=== PATIENT | male | born 1960 | race Caucasian/White ===

== ENCOUNTER → 2016-03-21 | Outpatient (CLI) | payer BC ==
[2016-03-21 07:40] LABS: Blood Urea Nitrogen 15 mg/dL (9-20); Non-African American GFR(MDRD) >60 (>60 ml/min/1.73 sqM)
--- NOTE | 2016-03-21 09:27 | CT ---
EXAMINATION TYPE: CT abdomen wo/w con DATE OF EXAM: 03/21/2016 8:23 AM COMPARISON: CT 01/23/2014, ultrasound 02/04/2015 INDICATION: recheck renal cyst DLP: 616.1 mGycm, Automated exposure control for dose reduction was used. CONTRAST: 100 mL of Omnipaque 300. Study performed with Oral Contrast TECHNIQUE: Axial images were obtained from above the diaphragm to the pubic rami in the axial plane a t 5 mm thick sections. Reconstructed images are reviewed on the computer in the coronal plane. FINDINGS: Limited CT sections are obtained the lung bases. The lung bases are clear. CT ABDOMEN: Liver: Normal Spleen: Normal Pancreas: Normal Adrenal glands: The adrenal glands are normal. Gallbladder: Normal Kidneys: No masses are evident. There is a small left hydronephrosis. Some inflammatory change may be adjacent to the left renal pelvis. There is a nonobstructing 0.7 cm renal stone within the renal pel vis. Hydronephrosis appears to extend beyond this region. The calyces are not dilated. This may be pa rtially an extrarenal pelvis. No cysts are present. The extrarenal pelvis dilatation may extend towar ds the inferior pole which could account for the apparent cyst on prior studies. Delayed images were obtained through the kidneys, which remain unremarkable. Aorta: Normal Inferior vena cava: Normal. CT PELVIS: Upper portion only Loops of bowel within the abdomen and upper pelvis are normal. IMPRESSIONS: 1. Left extrarenal pelvis with inflammatory changes adjacent. A 0.7 cm nonobstructing renal stone is present within the renal pelvis. The inflammatory changes adjacent to the renal pelvis suggest infec tion or neoplasm. Consider additional evaluation with ultrasound.
== END | disposition home or self-care (01) ==
LOC: RADCTMAIN 06:53
PROVIDERS: ATTEND Urology
DX: N20.0 Calculus of kidney (principal); N28.1 Cyst of kidney, acquired
CPT/HCPCS: 82565; 84520; 74170; 36415; Q9967

== ENCOUNTER → 2016-03-23 | Outpatient (CLI) | payer BC ==
--- NOTE | 2016-03-23 14:21 | XR ---
Abdomen HISTORY: Kidney stones Correlation to CT abdomen 21 March 2016. Frontal view of the abdomen submitted on 2 images. Patient's left-sided renal pelvic calculus is noted and measures approximately 11 mm on plain film. L ned bases are clear. No pneumoperitoneum or bowel obstruction. Degenerative disc changes in the visua lized spine. Probable phleboliths present within the pelvis. IMPRESSION: Left renal pelvic calculus.
== END | disposition home or self-care (01) ==
LOC: RADXRMAIN 11:46
PROVIDERS: ATTEND Urology
DX: N20.0 Calculus of kidney (principal)
CPT/HCPCS: 74000

== ENCOUNTER 2016-07-19 18:20 | Emergency (ER) | payer BC ==
[2016-07-19 18:26] VITALS: TEMP 98.4
[2016-07-19] MEDS ORDERED: HYDROmorphone 1 MG/ML 1 ML SYRINGE IVP STA (18:44)
[2016-07-19] MEDS ORDERED: SODIUM CHLORIDE 0.9% 1,000 ML IV STA (18:44)
[2016-07-19] MEDS ORDERED: ONDANSETRON 4 MG/2 ML VIAL IVP STA (18:44)
[2016-07-19] MEDS ORDERED: RX INFO: IV CONTRAST WAS GIVEN 1 EACH MISC MISCELLANE PRN (18:45)
--- NOTE | 2016-07-19 18:47 | ED ---
Abdominal Pain HPI - General Chief Complaint: Abdominal Pain Stated Complaint: abdominal pain sent by [employer] Time Seen by Provider: 07/19/16 18:39 Source: patient, RN notes reviewed Mode of arrival: ambulatory Limitations: no limitations - History of Present Illness Initial Comments: 56-year-old male presents to the emergency department with a chief complaint of left lower quadrant abdominal pain. Patient states that initially about 6 weeks ago he had this left lower quadrant abdominal pain that lasted for a few days been completely resolved. Patient states that about a week ago it returned. Patient states sometimes it so intense and makes him vomit. Patient states he feels that maybe there is a blockage or something that he has had normal bowel movements. Patient states that sometimes it so bad that he bends over and feels like vomiting. Patient does admit to a history of diverticulitis in the past. Patient states he was concerned due to the continued pain and discomfort so he thought that he should be evaluated.Patient denies any recent fever, chills, shortness of breath, chest pain, back pain, numbness or tingling, dysuria or hematuria, constipation or diarrhea, headaches or visual changes, or any other current symptoms. - Related Data Previous Rx's Medication Instructions Recorded Hydrocodone/Acetaminophen [[place] 1 each PO Q6HR PRN #20 tab 07/19/16 5-325] Ketorolac [Toradol] 10 mg PO Q6HR #20 tab 07/19/16 Ondansetron Odt [Zofran ODT] 4 mg PO Q8HR PRN #20 tab 07/19/16 Tamsulosin [Flomax] 0.4 mg PO DAILY #5 cap 07/19/16 Allergies Allergy/AdvReac Type Severity Reaction Status Date / Time No Known Allergies Allergy Verified 07/19/16 19:07 Review of Systems ROS Statement: Those systems with pertinent positive or pertinent negative responses have been documented in the HPI. ROS Other: All systems not noted in ROS Statement are negative. 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 Eye: Pupils are equal, round. Ears, nose, mouth and throat: There are moist mucous membranes. Neck: The neck is supple, there is no tenderness. Cardiovascular: There is a regular rate and rhythm. No murmur, rub or gallop is appreciated. Respiratory: Lungs are clear to auscultation, respirations are non-labored, breath sounds are equal. No wheezes, stridor, rales, or rhonchi. Gastrointestinal: Soft, non-distended, non-tender abdomen without masses or organomegaly noted. There is no rebound or guarding present. No CVA tenderness. Bowel sounds are unremarkable. Back: There is no tenderness to palpation in the midline. There is no obvious deformity. No rashes noted. Musculoskeletal: Normal ROM, no tenderness, There is no pedal edema. There is no calf tenderness or swelling. Sensation intact. Pulses equal bilaterally 2+. Neurological: CN II-XII intact, There are no obvious motor or sensory deficits. Coordination appears grossly intact. Speech is normal. Skin: Skin is warm and dry and no rashes or lesions are noted. Psychiatric: Cooperative, appropriate mood & affect, normal judgment. Limitations: no limitations Course Vital Signs 07/19/16 07/19/16 18:22 19:49 Temperature 98.4 F Pulse Rate 75 74 Respiratory 20 16 Rate Blood Pressure 134/84 134/82 O2 Sat by Pulse 97 98 Oximetry Medical Decision Making - Medical Decision Making 56-year-old male presents emergency Department chief complaint of abdominal pain that has been on and off for the last 6 weeks. This time patient was IMAGING has been reviewed. Patient's sounds more like a kidney stone type pain and he does have a 10 mm stone. This time we discussed this also blood in urine. We discussed that could be possible other etiologies for these pain. We discussed what to return for. We discussed follow-up with urology note patient's questions. He stated he understood the plan. He will be discharged. - Lab Data Result diagrams: 07/19/16 19:00 07/19/16 19:00 Lab Results 07/19/16 07/19/16 07/19/16 Range/Units 19:00 19:00 19:00 WBC 7.9 (3.8-10.6) k/uL RBC 5.19 (4.30-5.90) m/uL Hgb 16.3 (13.0-17.5) gm/dL Hct 44.6 (39.0-53.0) % MCV 85.9 (80.0-100.0) fL MCH 31.3 (25.0-35.0) pg MCHC 36.5 (31.0-37.0) g/dL RDW 12.6 (11.5-15.5) % Plt Count 210 (150-450) k/uL Neutrophils % 73 % Lymphocytes % 18 % Monocytes % 7 % Eosinophils % 0 % Basophils % 1 % Neutrophils # 5.7 (1.3-7.7) k/uL Lymphocytes # 1.5 (1.0-4.8) k/uL Monocytes # 0.5 (0-1.0) k/uL Eosinophils # 0.0 (0-0.7) k/uL Basophils # 0.1 (0-0.2) k/uL Hyperchromasia Slight Sodium 143 (137-145) mmol/L Potassium 3.9 (3.5-5.1) mmol/L Chloride 108 H (98-107) mmol/L Carbon Dioxide 22 (22-30) mmol/L Anion Gap 13 mmol/L BUN 14 (9-20) mg/dL Creatinine 0.95 (0.66-1.25) mg/dL Est GFR (MDRD) Af Amer >60 (>60 ml/min/1.73 sqM) Est GFR (MDRD) Non-Af >60 (>60 ml/min/1.73 sqM) Glucose 96 (74-99) mg/dL Calcium 9.7 (8.4-10.2) mg/dL Total Bilirubin 1.3 (0.2-1.3) mg/dL AST 18 (17-59) U/L ALT 29 (21-72) U/L Alkaline Phosphatase 40 (38-126) U/L Total Protein 7.7 (6.3-8.2) g/dL Albumin 4.7 (3.5-5.0) g/dL Amylase 63 (30-110) U/L Lipase 130 (23-300) U/L Urine Color Yellow Urine Appearance Clear (Clear) Urine pH 6.5 (5.0-8.0) Ur Specific [place] 1.023 (1.001-1.035) Urine Protein 1+ H (Negative) Urine Glucose (UA) Trace H (Negative) Urine Ketones Trace H (Negative) Urine Blood Moderate H (Negative) Urine Nitrite Negative (Negative) Urine Bilirubin Negative (Negative) Urine Urobilinogen <2.0 (<2.0) mg/dL Ur Leukocyte Esterase Negative (Negative) Urine RBC 70 H (0-5) /hpf Urine WBC 2 (0-5) /hpf Urine Mucus Rare H (None) /hpf - Radiology Data Radiology results: report reviewed, image reviewed Disposition Clinical Impression: Hematuria, Kidney stone on left side Disposition: HOME SELF-CARE Condition: Stable Instructions: Kidney Stones (ED) Additional Instructions: Please use medication as discussed. Please follow up with family doctor if symptoms have not improved over the next two days. Please return to the emergency room if your symptoms increase or worsen or for any other concerns. Prescriptions: Hydrocodone/Acetaminophen [[place] 5-325] 1 each PO Q6HR PRN #20 tab PRN Reason: Pain Ketorolac [Toradol] 10 mg PO Q6HR #20 tab Ondansetron Odt [Zofran ODT] 4 mg PO Q8HR PRN #20 tab PRN Reason: Nausea Tamsulosin [Flomax] 0.4 mg PO DAILY #5 cap Referrals: Thaddeus Alfonso MD [Primary Care Provider] - 1-2 days Time of Disposition: 20:07
[2016-07-19 19:20] LABS: Basophils # (A) 0.1 k/uL (0-0.2); Basophils % (A) 1 %; CH 32.3; CHCM 37.7; Eosinophils % (A) 0 %; HCT 44.6 % (39.0-53.0); HDW 3.02; HGB 16.3 gm/dL (13.0-17.5); Hyperchromasia Slight; Luc # (Auto) 0.09; Luc % (Auto) 1; Lymphocytes # (A) 1.5 k/uL (1.0-4.8); Lymphocytes % (A) 18 %; MCH 31.3 pg (25.0-35.0); MCHC 36.5 g/dL (31.0-37.0); MCV 85.9 fL (80.0-100.0); Mean Platelet Volume 6.6; Monocytes # (A) 0.5 k/uL (0-1.0); Monocytes % (A) 7 %; Neutrophils # (A) 5.7 k/uL (1.3-7.7); Neutrophils % (A) 73 %; RBC 5.19 m/uL (4.30-5.90); RDW 12.6 % (11.5-15.5); WBC 7.9 k/uL (3.8-10.6); WBC (Perox) 7.43
[2016-07-19 19:26] LABS: Appearance,Urine Clear (Clear); Bilirubin,Urine Negative (Negative); Glucose,Urine (UA) Trace (Negative); Ketones,Urine Trace (Negative); Leukocyte Esterase,Urine Negative (Negative); Mucus,Urine Rare /hpf; Nitrite,Urine Negative (Negative); PH, Urine 6.5 (5.0-8.0); Particle Count 2082; Protein,Urine 1+ (Negative); RBC,Urine 70 /hpf (0-5); Specific Gravity,Urine 1.023 (1.001-1.035); UA Billing (MACRO vs. MICRO) MICRO; Urobilinogen,Urine <2.0 mg/dL (<2.0); WBC,Urine 2 /hpf (0-5)
[2016-07-19 19:29] LABS: ALT 29 U/L (21-72); AST 18 U/L (17-59); Alkaline Phosphatase 40 U/L (38-126); Amylase 63 U/L (30-110); Anion Gap 13 mmol/L; Blood Urea Nitrogen 14 mg/dL (9-20); Calcium 9.7 mg/dL (8.4-10.2); Carbon Dioxide 22 mmol/L (22-30); Chloride 108 mmol/L (98-107); Glucose 96 mg/dL (74-99); Non-African American GFR(MDRD) >60 (>60 ml/min/1.73 sqM); Potassium 3.9 mmol/L (3.5-5.1); Sodium 143 mmol/L (137-145); Total Bilirubin 1.3 mg/dL (0.2-1.3); Total Protein 7.7 g/dL (6.3-8.2)
--- NOTE | 2016-07-19 19:46 | CT ---
EXAMINATION TYPE: CT abdomen pelvis w con DATE OF EXAM: 07/19/2016 7:39 PM COMPARISON: 03/21/2016 HISTORY: Left lower quadrant pain on and off x 5 days. Some nausea and vomiting. Pain also moves to r ight lower quadrant at times. CT DLP: 733.40 mGycm CONTRAST: CT scan of the abdomen and pelvis is performed without Oral Contrast and with IV Contrast, patient in jected with 100 mL of Omnipaque 300. FINDINGS: LUNG BASES-: No visible nodule. No infiltrate. LIVER/GB: No calcified gallstones. No space occupying hepatic lesion. Biliary tree is of normal ca liber. PANCREAS: No inflammation. No distinct mass. SPLEEN: No splenic enlargement. No lesion seen. ADRENALS: No nodule. No thickening. KIDNEYS/BLADDER: 10 mm nonobstructing calculus within the left renal pelvis. There is fullness of th e left renal pelvis unchanged from prior study. There is thickening of the urothelium which may refle ct underlying infection. No additional calculi seen. Right kidney is unremarkable. BOWEL: Normal appendix. Normal bowel caliber. No inflammation. Mild sigmoid diverticulosis without diverticulitis. GENITAL ORGANS: No gross abnormality. LYMPH NODES: No greater than 1cm abdominal or pelvic lymph nodes are appreciated. AORTA: No significant abnormality. OSSEOUS STRUCTURES: Degenerative changes lumbar spine. OTHER: Fat-containing umbilical hernia identified. IMPRESSION: 1. 10 mm nonobstructing calculus within the left renal pelvis. There is fullness of the left renal p justin unchanged from prior study. There is thickening of the urothelium which may reflect underlying infection.
[2016-07-19 19:52] VITALS: BP 134/82; PULSE 74; RESP 16
[2016-07-19] MEDS ORDERED: KETOROLAC 30 MG/ML 1 ML VIAL IVP STA (20:07)
== END 2016-07-19 20:17 | disposition home or self-care (01) ==
LOC: EC 18:20
DX: N20.0 Calculus of kidney (principal); R31.9 Hematuria, unspecified; Z85.810 Personal history of malignant neoplasm of tongue
CPT/HCPCS: 36415; 80053; 82150; 83690; 85025; 81001; 87086; 74177; 99284; 96374; 96361; J1885; Q9967

== ENCOUNTER 2016-08-08 06:18 | Emergency (ER) | payer BC ==
[2016-08-08 06:30] VITALS: RESP 18
[2016-08-08] MEDS ORDERED: METOCLOPRAMIDE 5 MG/ML 2 ML VIAL IVP STA (07:28)
[2016-08-08] MEDS ORDERED: SODIUM CHLORIDE 0.9% 1,000 ML IV STA (07:28)
[2016-08-08] MEDS ORDERED: KETOROLAC 30 MG/ML 1 ML VIAL IVP STA (07:28)
--- NOTE | 2016-08-08 07:33 | ED ---
General Adult HPI - General Chief complaint: Abdominal Pain Stated complaint: Vomiting Time Seen by Provider: 08/08/16 07:15 Source: patient, family, RN notes reviewed Mode of arrival: ambulatory Limitations: no limitations - History of Present Illness Initial comments: Patient is a pleasant 56-year-old male presenting to the emergency Department with abdominal/flank pain. Patient had lithotripsy yesterday for a known 7 x 11 mm kidney stone. Last night patient started with vomiting and has vomited multiple times. Patient is unable to tolerate oral medications. Patient also has left flank discomfort which is moderate to severe. Kidney stone has been monitored for the past couple of years. Patient does feel somewhat constipated. No dysuria or hematuria noticed. No diarrhea. No fevers. No back pain. - Related Data Home Medications Medication Instructions Recorded Confirmed Hydrocodone/Acetaminophen [[place] 1 tab PO Q6HR PRN 08/08/16 08/08/16 5-325] Multivitamins, Thera [Multivitamin 1 tab PO DAILY 08/08/16 08/08/16 (formulary)] Previous Rx's Medication Instructions Recorded Ketorolac [Toradol] 10 mg PO Q6HR #20 tab 07/19/16 Ondansetron Odt [Zofran ODT] 4 mg PO Q8HR PRN #20 tab 07/19/16 Tamsulosin [Flomax] 0.4 mg PO DAILY #5 cap 07/19/16 Allergies Allergy/AdvReac Type Severity Reaction Status Date / Time No Known Allergies Allergy Verified 08/08/16 08:05 Review of Systems ROS Statement: Those systems with pertinent positive or pertinent negative responses have been documented in the HPI. ROS Other: All systems not noted in ROS Statement are negative. 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 , umbilical hernia, kidney stones History of Any Multi-Drug Resistant Organisms: None Reported Past Surgical History: Orthopedic Surgery Additional Past Surgical History / Comment(s): cervical fusion, left knee, lithotripsy 08/07/2016 Past Psychological History: No Psychological Hx Reported Smoking Status: Former smoker Past Alcohol Use History: Occasional Past Drug Use History: None Reported General Exam Limitations: no limitations General appearance: alert, in no apparent distress Head exam: Present: atraumatic Eye exam: Present: normal appearance, PERRL ENT exam: Present: normal oropharynx Neck exam: Present: normal inspection Respiratory exam: Present: normal lung sounds bilaterally Cardiovascular Exam: Present: regular rate, normal rhythm Expanded Peripheral pulses: 2+: Dorsalis Pedis (R), Dorsalis Pedis (L) GI/Abdominal exam: Present: soft, normal bowel sounds. Absent: distended, tenderness, guarding, rebound, rigid, pulsatile mass Extremities exam: Present: normal inspection Neurological exam: Present: alert Psychiatric exam: Present: normal affect, normal mood Skin exam: Present: normal color. Absent: rash Course Vital Signs 08/08/16 08/08/16 08/08/16 06:25 07:21 08:47 Temperature 97.6 F 99.5 F 99.2 F Pulse Rate 97 80 94 Respiratory 18 18 18 Rate Blood Pressure 138/84 157/74 130/78 O2 Sat by Pulse 99 100 97 Oximetry Medical Decision Making - Medical Decision Making Patient reexamined and significantly improved. Patient states pain is tolerable and no nausea. Patient is comfortable with discharge home. Case was discussed with Dr. Boles who is okay with discharge of patient. Patient and family were updated on results. - Lab Data Result diagrams: 08/08/16 06:45 08/08/16 06:45 Lab Results 08/08/16 08/08/16 08/08/16 Range/Units 06:45 06:45 06:45 WBC 11.7 H (3.8-10.6) k/uL RBC 5.25 (4.30-5.90) m/uL Hgb 16.1 (13.0-17.5) gm/dL Hct 45.8 (39.0-53.0) % MCV 87.2 (80.0-100.0) fL MCH 30.6 (25.0-35.0) pg MCHC 35.1 (31.0-37.0) g/dL RDW 12.9 (11.5-15.5) % Plt Count 212 (150-450) k/uL Neutrophils % 90 % Lymphocytes % 4 % Monocytes % 4 % Eosinophils % 0 % Basophils % 1 % Neutrophils # 10.6 H (1.3-7.7) k/uL Lymphocytes # 0.5 L (1.0-4.8) k/uL Monocytes # 0.5 (0-1.0) k/uL Eosinophils # 0.0 (0-0.7) k/uL Basophils # 0.1 (0-0.2) k/uL PT 10.4 (9.0-12.0) sec INR 1.0 (<1.1) APTT 23.7 (22.0-30.0) sec Sodium 141 (137-145) mmol/L Potassium 4.1 (3.5-5.1) mmol/L Chloride 107 (98-107) mmol/L Carbon Dioxide 21 L (22-30) mmol/L Anion Gap 13 mmol/L BUN 17 (9-20) mg/dL Creatinine 1.17 (0.66-1.25) mg/dL Est GFR (MDRD) Af Amer >60 (>60 ml/min/1.73 sqM) Est GFR (MDRD) Non-Af >60 (>60 ml/min/1.73 sqM) Glucose 137 H (74-99) mg/dL Calcium 10.0 (8.4-10.2) mg/dL Total Bilirubin 2.0 H (0.2-1.3) mg/dL AST 23 (17-59) U/L ALT 29 (21-72) U/L Alkaline Phosphatase 47 (38-126) U/L Total Protein 7.7 (6.3-8.2) g/dL Albumin 4.9 (3.5-5.0) g/dL Amylase 66 (30-110) U/L Lipase 93 (23-300) U/L Urine Color Urine Appearance (Clear) Urine pH (5.0-8.0) Ur Specific [place] (1.001-1.035) Urine Protein (Negative) Urine Glucose (UA) (Negative) Urine Ketones (Negative) Urine Blood (Negative) Urine Nitrite (Negative) Urine Bilirubin (Negative) Urine Urobilinogen (<2.0) mg/dL Ur Leukocyte Esterase (Negative) Urine RBC (0-5) /hpf Urine WBC (0-5) /hpf Urine Mucus (None) /hpf 08/08/16 Range/Units 07:26 WBC (3.8-10.6) k/uL RBC (4.30-5.90) m/uL Hgb (13.0-17.5) gm/dL Hct (39.0-53.0) % MCV (80.0-100.0) fL MCH (25.0-35.0) pg MCHC (31.0-37.0) g/dL RDW (11.5-15.5) % Plt Count (150-450) k/uL Neutrophils % % Lymphocytes % % Monocytes % % Eosinophils % % Basophils % % Neutrophils # (1.3-7.7) k/uL Lymphocytes # (1.0-4.8) k/uL Monocytes # (0-1.0) k/uL Eosinophils # (0-0.7) k/uL Basophils # (0-0.2) k/uL PT (9.0-12.0) sec INR (<1.1) APTT (22.0-30.0) sec Sodium (137-145) mmol/L Potassium (3.5-5.1) mmol/L Chloride (98-107) mmol/L Carbon Dioxide (22-30) mmol/L Anion Gap mmol/L BUN (9-20) mg/dL Creatinine (0.66-1.25) mg/dL Est GFR (MDRD) Af Amer (>60 ml/min/1.73 sqM) Est GFR (MDRD) Non-Af (>60 ml/min/1.73 sqM) Glucose (74-99) mg/dL Calcium (8.4-10.2) mg/dL Total Bilirubin (0.2-1.3) mg/dL AST (17-59) U/L ALT (21-72) U/L Alkaline Phosphatase (38-126) U/L Total Protein (6.3-8.2) g/dL Albumin (3.5-5.0) g/dL Amylase (30-110) U/L Lipase (23-300) U/L Urine Color Yellow Urine Appearance Clear (Clear) Urine pH 7.0 (5.0-8.0) Ur Specific [place] 1.016 (1.001-1.035) Urine Protein Trace H (Negative) Urine Glucose (UA) Negative (Negative) Urine Ketones 2+ H (Negative) Urine Blood Moderate H (Negative) Urine Nitrite Negative (Negative) Urine Bilirubin Negative (Negative) Urine Urobilinogen <2.0 (<2.0) mg/dL Ur Leukocyte Esterase Negative (Negative) Urine RBC 32 H (0-5) /hpf Urine WBC 1 (0-5) /hpf Urine Mucus Rare H (None) /hpf - Radiology Data Radiology results: image reviewed (KUB shows no acute process) Disposition Clinical Impression: Ureterolithiasis Disposition: HOME SELF-CARE Condition: Stable Instructions: Kidney Stones (ED) Additional Instructions: Please follow-up with primary care physician as well as Dr. Boles. Return for increased pain, fevers, worsening symptoms or other concerns. Referrals: Thaddeus Alfonso MD [Primary Care Provider] - 1-2 days Dwayne Meza MD [STAFF PHYSICIAN] - 1-2 days Time of Disposition: 09:04
[2016-08-08 07:39] LABS: Basophils # (A) 0.1 k/uL (0-0.2); Basophils % (A) 1 %; CH 32.1; Eosinophils % (A) 0 %; HCT 45.8 % (39.0-53.0); HDW 2.83; HGB 16.1 gm/dL (13.0-17.5); Luc # (Auto) 0.06; Luc % (Auto) 1; Lymphocytes # (A) 0.5 k/uL (1.0-4.8); Lymphocytes % (A) 4 %; MCH 30.6 pg (25.0-35.0); MCHC 35.1 g/dL (31.0-37.0); MCV 87.2 fL (80.0-100.0); Mean Platelet Volume 6.6; Monocytes # (A) 0.5 k/uL (0-1.0); Monocytes % (A) 4 %; Neutrophils # (A) 10.6 k/uL (1.3-7.7); Neutrophils % (A) 90 %; RBC 5.25 m/uL (4.30-5.90); RDW 12.9 % (11.5-15.5); WBC 11.7 k/uL (3.8-10.6); WBC (Perox) 11.31
[2016-08-08 07:41] LABS: Appearance,Urine Clear (Clear); Bilirubin,Urine Negative (Negative); Glucose,Urine (UA) Negative (Negative); Ketones,Urine 2+ (Negative); Leukocyte Esterase,Urine Negative (Negative); Mucus,Urine Rare /hpf; Nitrite,Urine Negative (Negative); Particle Count 1223; Protein,Urine Trace (Negative); RBC,Urine 32 /hpf (0-5); Specific Gravity,Urine 1.016 (1.001-1.035); UA Billing (MACRO vs. MICRO) MICRO; Urobilinogen,Urine <2.0 mg/dL (<2.0); WBC,Urine 1 /hpf (0-5)
[2016-08-08 07:47] LABS: Partial Thromboplastin Time 23.7 sec (22.0-30.0); Prothrombin Time 10.4 sec (9.0-12.0)
[2016-08-08 07:49] LABS: ALT 29 U/L (21-72); AST 23 U/L (17-59); Alkaline Phosphatase 47 U/L (38-126); Amylase 66 U/L (30-110); Anion Gap 13 mmol/L; Blood Urea Nitrogen 17 mg/dL (9-20); Carbon Dioxide 21 mmol/L (22-30); Chloride 107 mmol/L (98-107); Glucose 137 mg/dL (74-99); Non-African American GFR(MDRD) >60 (>60 ml/min/1.73 sqM); Potassium 4.1 mmol/L (3.5-5.1); Sodium 141 mmol/L (137-145); Total Protein 7.7 g/dL (6.3-8.2)
--- NOTE | 2016-08-08 08:19 | XR ---
Abdomen HISTORY: Abdominal pain, status post lithotripsy Frontal view of the abdomen submitted on 2 images and correlated to prior abdomen 03/23/2016, CT abdom en pelvis 07/19/2016 Lung bases are clear. There is no bowel obstruction or pneumoperitoneum. Bones are stable, there may be underlying femoral acetabular impingement. Patient's left-sided nephrolithiasis is not seen with c ertthu. Vascular calcification noted within the pelvis. Degenerative disc changes in the visualized spine. IMPRESSION: No acute abnormalities evident, additional findings above.
[2016-08-08 09:21] VITALS: BP 133/75; PULSE 97; TEMP 98.7
[2016-08-08] MEDS ORDERED: ONDANSETRON 4 MG ODT STARTER PACK 2 TAB BTL PO STA (09:23)
== END 2016-08-08 09:26 | disposition home or self-care (01) ==
LOC: EC 06:18
DX: N20.1 Calculus of ureter (principal); R11.10 Vomiting, unspecified; Z87.891 Personal history of nicotine dependence; Z85.828 Personal history of other malignant neoplasm of skin; Z79.899 Other long term (current) drug therapy
CPT/HCPCS: 36415; 80053; 82150; 83690; 85025; 85610; 85730; 81001; 74000; 99284; 96374; 96375; 96361 ×2; J2765; J1885; S0119

== ENCOUNTER → 2016-08-14 | Outpatient (CLI) | payer BC ==
--- NOTE | 2016-08-14 12:03 | XR ---
Abdomen History renal calculus, status post lithotripsy Frontal view of the abdomen on 2 correlated to prior 08 August 2016, CT abdomen pelvis 07/19/2016 There is overlying bowel gas which may obscure detail. Calcifications within the pelvis are again see n and are indeterminate. IMPRESSION: There is no significant interval change. No acute abnormalities are evident.
== END | disposition home or self-care (01) ==
LOC: RADXRMAIN 09:54
PROVIDERS: ATTEND Urology
DX: N20.0 Calculus of kidney (principal)
CPT/HCPCS: 74000

== ENCOUNTER → 2016-10-16 | Outpatient (CLI) | payer BC ==
[2016-10-16 07:58] LABS: Blood Urea Nitrogen 14 mg/dL (9-20); Non-African American GFR(MDRD) >60 (>60 ml/min/1.73 sqM)
--- NOTE | 2016-10-16 08:56 | CT ---
EXAMINATION TYPE: CT abdomen w con DATE OF EXAM: 10/16/2016 COMPARISON: 07/19/2016 HISTORY: renal mass, history of renal stone CT DLP: 1045 mGycm CONTRAST: CT scan of the abdomen is performed without Oral Contrast and with IV Contrast, patient injected wit h 100 mL of Omnipaque 300. FINDINGS: LUNG BASES-: No visible nodule. No infiltrate. LIVER/GB: No calcified gallstones. No space occupying hepatic lesion. Biliary tree is of normal ca liber. PANCREAS: No inflammation. No distinct mass. SPLEEN: No splenic enlargement. No lesion seen. ADRENALS: No nodule. No thickening. KIDNEYS/BLADDER: Previously noted left renal calculus is no longer visible. Mild fullness of the left renal pelvis persists. No additional nephrolithiasis identified at this time. Small renal cortical h ypoattenuating lesion lower pole right kidney measuring 9.4 mm likely reflects a small cyst although is too small to appropriately characterize. Additional smaller 7 mm hypoattenuating lesion mid to upp er pole left kidney is also too small to appropriately characterize although likely reflects a small cyst. BOWEL: Normal appendix. Normal bowel caliber. No inflammation. LYMPH NODES: No greater than 1cm abdominal or pelvic lymph nodes are appreciated. AORTA: No significant abnormality. OSSEOUS STRUCTURES: No significant abnormality is seen. OTHER: Fat-containing umbilical hernia redemonstrated. Small sliding-type hiatal hernia. IMPRESSION: 1. Resolution of previously noted left renal calculus. 2. Subcentimeter hypoattenuating lesions bilaterally as noted above.
== END | disposition home or self-care (01) ==
LOC: RADCTMAIN 07:20
PROVIDERS: ATTEND Urology
DX: N28.89 Other specified disorders of kidney and ureter (principal)
CPT/HCPCS: 82565; 84520; 74160; 36415; Q9967

== ENCOUNTER → 2020-03-10 | Outpatient (CLI) | payer BC ==
--- NOTE | 2020-03-11 06:56 | MR ---
EXAMINATION TYPE: MR brain wo con DATE OF EXAM: 03/10/2020 COMPARISON: NONE HISTORY: Disc edema left eye TECHNIQUE: Multiplanar, multisequence imaging of the brain and brainstem is performed without IV cont rast. FINDINGS: Diffusion weighted images demonstrate no evidence of a recent infarct or other diffusion abnormality. There is no worrisome extra-axial fluid collection. Mild diffuse ventricular and sulcal prominence. S ome small scattered foci of T2 hyperintensity are seen throughout the white matter bilaterally. Appro ximately 15 tiny scattered lesions are present. Midline structures demonstrate normal morphology. The craniocervical junction appears within normal limits. Normal vascular flow voids are present. Roughly 1.8 cm mucous retention cyst or polyp in the inferior left maxillary sinus otherwise the paranasal sinuses are clear. Globes are intact bilaterall y. Intraconal fat is preserved. Suprasellar cistern is maintained. IMPRESSION: Mild diffuse age-related cerebral atrophy and chronic small vessel ischemic change. Globe s noted symmetric and within normal limits.
== END | disposition home or self-care (01) ==
LOC: RADMRIMAIN 20:10
PROVIDERS: ATTEND Ophthalmology
DX: G31.1 Senile degeneration of brain, not elsewhere classified (principal); I67.82 Cerebral ischemia
CPT/HCPCS: 70551

== ENCOUNTER 2020-10-14 12:16 | Emergency (ER) | payer BC ==
[2020-10-14 12:31] VITALS: RESP 18
[2020-10-14] MEDS ORDERED: SODIUM CHLORIDE 0.9% 1,000 ML IV STA ×2 (12:45)
--- NOTE | 2020-10-14 12:51 | ED ---
Abdominal Pain HPI - General Chief Complaint: Abdominal Pain Stated Complaint: Abdominal Discomfort Source: patient Mode of arrival: ambulatory Limitations: no limitations - History of Present Illness Initial Comments: This 60-year-old male presents complaining of abdominal pain present for the last 2 months. He states that it got worse over the past one day. It is primarily located in his left lower quadrant. He does have a history of diverticulitis with last flareup being in 2003. He denies any fevers or chills. He had nausea and one episode of vomiting this morning. He denies any diarrhea or constipation but does relate some change in the consistency of his stool. He also relates a history of umbilical hernia but this is not currently bothering him in this area. There is no urinary symptoms. No flank pain. No other complaints or modifying factors. He also relates a history of previous kidney stones 4 years [address] treated [address] Dr[address] Boles with lithotripsy. - Related Data Home Medications Medication Instructions Recorded Confirmed Multivitamins, Thera [Multivitamin 1 tab PO DAILY 08/08/16 10/14/20 (formulary)] Aspirin EC [Ecotrin Low Dose] 81 mg PO DAILY 10/14/20 10/14/20 Brimonidine Tartrate [Alphagan P 1 drop LEFT EYE BID 10/14/20 10/14/20 0.2% Ophth Soln] Previous Rx's Medication Instructions Recorded Ondansetron [Zofran] 8 mg PO Q8HR PRN #12 tab 10/14/20 traMADol HCl [Ultram] 50 - 100 mg PO Q6H PRN #15 tab 10/14/20 Allergies Allergy/AdvReac Type Severity Reaction Status Date / Time No Known Allergies Allergy Verified 10/14/20 13:59 Review of Systems ROS Statement: Those systems with pertinent positive or pertinent negative responses have been documented in the HPI. ROS Other: All systems not noted in ROS Statement are negative. 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 VITAL SIGNS: Heart rate, blood pressure, respiratory rate reviewed as recorded in nurse's notes. EYES: Pupils are round and reactive. Extraocular movements are intact. No conjunctival / lid redness or swelling. ENT: No external evidence of injury, swelling, or ecchymosis. Airway is patent. Throat is clear. NECK: Nontender. No swelling or evidence of injury. No subcutaneous emphysema. Trachea is midline. No thyroid mass. HEART: Regular rate and rhythm. Good peripheral pulses. LUNGS/CHEST: Breath sounds clear and equal bilaterally. No rales, rhonchi, or wheezes. No ecchymosis, subcutaneous emphysema, or tenderness. ABDOMEN: Abdomen soft mild tenderness noted to the left lower quadrant. There is an easily reducible umbilical hernia noted. No tenderness noted to the umbilicus.. No palpable masses or organomegaly. No peritoneal signs. No abd ominal wall swelling or ecchymosis. EXTREMITIES: No extremity tenderness. Normal muscle tone and function. No thoracolumbar tenderness. NEUROLOGIC: Sensation is grossly intact. Cranial nerve exam reveals face is symmetrical, tongue is midline, speech is clear. SKIN: No abrasions or ecchymosis is noted. No induration or masses noted. PSYCHIATRIC: Alert and oriented. Appropriate behavior and judgment. Limitations: no limitations Course Vital Signs 10/14/20 10/14/20 10/14/20 12:26 14:25 15:53 Temperature 98.2 F 97.1 F L Pulse Rate 72 60 61 Respiratory 18 18 18 Rate Blood Pressure 143/95 135/96 137/93 O2 Sat by Pulse 98 100 100 Oximetry Medical Decision Making - Medical Decision Making The patient was seen and examined. All diagnostics were reviewed. An IV is established and he is hydrated. He refuses any pain or nausea medications cu rrently stating that his symptoms are not that severe at this point. He states that his symptoms are more significant if he starts exerting himself or stands up. The laboratory is unremarkable. The urinalysis shows hematuria but no evidence of infection. The computed tomography scan of the abdomen and pelvis with IV contrast shows evidence of a 8 mm UPJ stone. There is some associated hydronephrosis and inflammatory changes. There is a question as to intermittent obstruction of the UPJ due to the stone. Case is discussed with Dr. Meza and he recommends discharge. Patient will follow-up with him in 2 weeks as he will be out of town next week. Symptomatic treatment will be prescribed. Return parameters are discussed in detail. - Lab Data Result diagrams: 10/14/20 12:50 10/14/20 12:50 Lab Results 10/14/20 10/14/20 10/14/20 Range/Units 12:50 12:50 12:50 WBC 8.2 (3.8-10.6) k/uL RBC 5.13 (4.30-5.90) m/uL Hgb 16.0 (13.0-17.5) gm/dL Hct 46.1 (39.0-53.0) % MCV 89.9 (80.0-100.0) fL MCH 31.3 (25.0-35.0) pg MCHC 34.8 (31.0-37.0) g/dL RDW 13.3 (11.5-15.5) % Plt Count 183 (150-450) k/uL MPV 7.5 Neutrophils % 82 % Lymphocytes % 11 % Monocytes % 5 % Eosinophils % 1 % Basophils % 1 % Neutrophils # 6.7 (1.3-7.7) k/uL Lymphocytes # 0.9 L (1.0-4.8) k/uL Monocytes # 0.4 (0-1.0) k/uL Eosinophils # 0.1 (0-0.7) k/uL Basophils # 0.0 (0-0.2) k/uL PT 10.6 (9.0-12.0) sec INR 1.0 (<1.2) APTT 24.2 (22.0-30.0) sec Sodium (137-145) mmol/L Potassium (3.5-5.1) mmol/L Chloride (98-107) mmol/L Carbon Dioxide (22-30) mmol/L Anion Gap mmol/L BUN (9-20) mg/dL Creatinine (0.66-1.25) mg/dL Est GFR (CKD-EPI)AfAm (>60 ml/min/1.73 sqM) Est GFR (CKD-EPI)NonAf (>60 ml/min/1.73 sqM) Glucose (74-99) mg/dL Calcium (8.4-10.2) mg/dL Total Bilirubin (0.2-1.3) mg/dL AST (17-59) U/L ALT (4-49) U/L Alkaline Phosphatase (38-126) U/L Total Protein (6.3-8.2) g/dL Albumin (3.5-5.0) g/dL Lipase (23-300) U/L Urine Color Yellow Urine Appearance Cloudy (Clear) Urine pH 5.5 (5.0-8.0) Ur Specific [place] 1.028 (1.001-1.035) Urine Protein 1+ H (Negative) Urine Glucose (UA) Negative (Negative) Urine Ketones Negative (Negative) Urine Blood Large H (Negative) Urine Nitrite Negative (Negative) Urine Bilirubin Negative (Negative) Urine Urobilinogen <2.0 (<2.0) mg/dL Ur Leukocyte Esterase Negative (Negative) Urine RBC >182 H (0-5) /hpf Urine WBC 4 (0-5) /hpf Ur Squamous Epith Cells <1 (0-4) /hpf Urine Mucus Few H (None) /hpf 10/14/20 Range/Units 12:50 WBC (3.8-10.6) k/uL RBC (4.30-5.90) m/uL Hgb (13.0-17.5) gm/dL Hct (39.0-53.0) % MCV (80.0-100.0) fL MCH (25.0-35.0) pg MCHC (31.0-37.0) g/dL RDW (11.5-15.5) % Plt Count (150-450) k/uL MPV Neutrophils % % Lymphocytes % % Monocytes % % Eosinophils % % Basophils % % Neutrophils # (1.3-7.7) k/uL Lymphocytes # (1.0-4.8) k/uL Monocytes # (0-1.0) k/uL Eosinophils # (0-0.7) k/uL Basophils # (0-0.2) k/uL PT (9.0-12.0) sec INR (<1.2) APTT (22.0-30.0) sec Sodium 138 (137-145) mmol/L Potassium 4.0 (3.5-5.1) mmol/L Chloride 108 H (98-107) mmol/L Carbon Dioxide 21 L (22-30) mmol/L Anion Gap 9 mmol/L BUN 12 (9-20) mg/dL Creatinine 0.73 (0.66-1.25) mg/dL Est GFR (CKD-EPI)AfAm >90 (>60 ml/min/1.73 sqM) Est GFR (CKD-EPI)NonAf >90 (>60 ml/min/1.73 sqM) Glucose 102 H (74-99) mg/dL Calcium 9.6 (8.4-10.2) mg/dL Total Bilirubin 1.4 H (0.2-1.3) mg/dL AST 21 (17-59) U/L ALT 17 (4-49) U/L Alkaline Phosphatase 47 (38-126) U/L Total Protein 6.9 (6.3-8.2) g/dL Albumin 4.4 (3.5-5.0) g/dL Lipase 148 (23-300) U/L Urine Color Urine Appearance (Clear) Urine pH (5.0-8.0) Ur Specific [place] (1.001-1.035) Urine Protein (Negative) Urine Glucose (UA) (Negative) Urine Ketones (Negative) Urine Blood (Negative) Urine Nitrite (Negative) Urine Bilirubin (Negative) Urine Urobilinogen (<2.0) mg/dL Ur Leukocyte Esterase (Negative) Urine RBC (0-5) /hpf Urine WBC (0-5) /hpf Ur Squamous Epith Cells (0-4) /hpf Urine Mucus (None) /hpf Disposition Clinical Impression: Acute abdominal pain, Kidney stone, Hematuria, Hydronephrosis Disposition: HOME SELF-CARE Condition: Good Instructions (If sedation given, give patient instructions): Abdominal Pain (ED), Kidney Stones (ED), Hematuria (ED) Prescriptions: traMADol HCl [Ultram] 50 - 100 mg PO Q6H PRN #15 tab PRN Reason: Pain Ondansetron [Zofran] 8 mg PO Q8HR PRN #12 tab PRN Reason: Nausea Is patient prescribed a controlled substance at d/c from ED?: Yes When asked, does pt state using other controlled substances?: No If prescribed controlled substance>3 days was MAPS reviewed?: Prescribed <3 Days Referrals: Thaddeus Alfonso MD [Primary Care Provider] - 1-2 days Dwayne Meza MD [STAFF PHYSICIAN] - 10/25/20 Time of Disposition: 16:03
[2020-10-14 13:18] LABS: Basophils % (A) 1 %; Eosinophils # (A) 0.1 k/uL (0-0.7); Eosinophils % (A) 1 %; HCT 46.1 % (39.0-53.0); Lymphocytes # (A) 0.9 k/uL (1.0-4.8); Lymphocytes % (A) 11 %; MCH 31.3 pg (25.0-35.0); MCHC 34.8 g/dL (31.0-37.0); MCV 89.9 fL (80.0-100.0); Mean Platelet Volume 7.5; Monocytes # (A) 0.4 k/uL (0-1.0); Monocytes % (A) 5 %; Neutrophils # (A) 6.7 k/uL (1.3-7.7); Neutrophils % (A) 82 %; Platelet Count 183 k/uL (150-450); RBC 5.13 m/uL (4.30-5.90); RDW 13.3 % (11.5-15.5); WBC 8.2 k/uL (3.8-10.6)
[2020-10-14 13:35] LABS: Appearance,Urine Cloudy (Clear); Bilirubin,Urine Negative (Negative); Blood,Urine Large (Negative); Color,Urine Yellow; Glucose,Urine (UA) Negative (Negative); Ketones,Urine Negative (Negative); Leukocyte Esterase,Urine Negative (Negative); Mucus,Urine Few /hpf; Nitrite,Urine Negative (Negative); PH, Urine 5.5 (5.0-8.0); Protein,Urine 1+ (Negative); RBC,Urine >182 /hpf (0-5); Specific Gravity,Urine 1.028 (1.001-1.035); Squamous Epithelial Cell,Urine <1 /hpf (0-4); Urobilinogen,Urine <2.0 mg/dL (<2.0); WBC,Urine 4 /hpf (0-5)
[2020-10-14 13:42] LABS: ALT 17 U/L (4-49); AST 21 U/L (17-59); African American GFR (CKD) >90 (>60 ml/min/1.73 sqM); Albumin 4.4 g/dL (3.5-5.0); Alkaline Phosphatase 47 U/L (38-126); Anion Gap 9 mmol/L; Blood Urea Nitrogen 12 mg/dL (9-20); Calcium 9.6 mg/dL (8.4-10.2); Carbon Dioxide 21 mmol/L (22-30); Chloride 108 mmol/L (98-107); Glucose 102 mg/dL (74-99); Lipase 148 U/L (23-300); Non-African American GFR(CKD) >90 (>60 ml/min/1.73 sqM); Sodium 138 mmol/L (137-145); Total Bilirubin 1.4 mg/dL (0.2-1.3); Total Protein 6.9 g/dL (6.3-8.2)
[2020-10-14 13:46] LABS: Partial Thromboplastin Time 24.2 sec (22.0-30.0); Prothrombin Time 10.6 sec (9.0-12.0)
--- NOTE | 2020-10-14 14:04 | CT ---
EXAMINATION TYPE: CT abdomen pelvis w con DATE OF EXAM: 10/14/2020 COMPARISON: 10/16/2016 HISTORY: 60-year-old male LLQ pain, nausea, vomiting, suspected diverticulitis. TECHNIQUE: Contiguous axial scanning of the abdomen and pelvis following administration of 100 ml Iso edwige 300 IV contrast. Delayed images through the kidneys and coronal/sagittal reconstructions perform ed. CT DLP: 952.7 mGycm Automated exposure control for dose reduction was used. FINDINGS: Heart normal size without pericardial effusion. Lung bases clear without pleural effusion. No focal liver lesion or biliary ductal dilatation. Portal venous system is patent. Gallbladder, right adrenal gland, spleen, and pancreas within normal limits. Small 9 mm cortical cyst medial lower pole right kidney is redemonstrated. Tiny subcentimeter hypodensities left kidney also suggests cortical cyst. Extra renal pelvis redemonstrated on left. There may be mild pelvocaliectasis. However, there is urot helial thickening and some mild fat stranding of the left renal collecting system and an 8 mm calculu s in the renal pelvis. Stable 9 mm nodule in the left adrenal gland, unchanged from 2017. No dilated small bowel, free fluid, or free air. No mesenteric or retroperitoneal lymphadenopathy. Mi ld stool burden. No pericolonic inflammatory change. Mild circumferential bladder wall thickening may relate to incomplete distention. Prostate gland mild ly enlarged at 4.7 cm wide. Small pelvic phleboliths. No abnormal fluid collection in the pelvis or p elvic lymphadenopathy. Bones: Moderate degenerative change of the hips. Degenerative bony ankylosis of the SI joints. Modera te to advanced degenerative disc disease L5-S1 and mild at additional levels. IMPRESSION: 1. UROTHELIAL THICKENING AND MILD SURROUNDING INFLAMMATION OF THE LEFT RENAL COLLECTING SYSTEM. FINDI NGS MAY BE REACTIVE TO THE 8 MM CALCULUS DEPENDENT IN THE RENAL PELVIS ARE COMPARED REFLECT ASCENDING URINARY TRACT INFECTION. 2. THERE IS SLIGHT FULLNESS OF THE LEFT RENAL COLLECTING SYSTEM THAT COULD BE SECONDARY TO INTERMITTE NT UPJ OBSTRUCTION BY THE CALCULUS. 3. NO EVIDENCE FOR ACUTE DIVERTICULITIS.
[2020-10-14 14:28] VITALS: TEMP 97.1
[2020-10-14 15:54] VITALS: BP 137/93; PULSE 61
== END 2020-10-14 16:15 | disposition home or self-care (01) ==
LOC: EC 12:16
DX: N13.2 Hydronephrosis with renal and ureteral calculous obstruction (principal)
CPT/HCPCS: 99284; 96360; 96361; 36415; 80053; 83690; 85025; 85610; 85730; 81001; 74177; Q9967

== ENCOUNTER → 2020-11-15 | Outpatient (CLI) | payer BC ==
[2020-11-15 09:18] LABS: Basophils % (A) 1 %; Eosinophils # (A) 0.1 k/uL (0-0.7); Eosinophils % (A) 3 %; HCT 43.1 % (39.0-53.0); HGB 15.4 gm/dL (13.0-17.5); Lymphocytes # (A) 1.4 k/uL (1.0-4.8); Lymphocytes % (A) 25 %; MCH 31.6 pg (25.0-35.0); MCHC 35.6 g/dL (31.0-37.0); MCV 88.7 fL (80.0-100.0); Mean Platelet Volume 7.4; Monocytes # (A) 0.4 k/uL (0-1.0); Monocytes % (A) 8 %; Neutrophils # (A) 3.4 k/uL (1.3-7.7); Neutrophils % (A) 62 %; Platelet Count 174 k/uL (150-450); RBC 4.86 m/uL (4.30-5.90); RDW 12.3 % (11.5-15.5); WBC 5.5 k/uL (3.8-10.6)
[2020-11-15 09:30] LABS: African American GFR (CKD) >90 (>60 ml/min/1.73 sqM); Anion Gap 6 mmol/L; Blood Urea Nitrogen 13 mg/dL (9-20); Carbon Dioxide 25 mmol/L (22-30); Chloride 108 mmol/L (98-107); Non-African American GFR(CKD) >90 (>60 ml/min/1.73 sqM); Potassium 4.4 mmol/L (3.5-5.1); Sodium 139 mmol/L (137-145)
== END | disposition home or self-care (01) ==
LOC: LABPAT 08:20
PROVIDERS: ATTEND Urology
DX: Z01.812 Encounter for preprocedural laboratory examination (principal); N20.0 Calculus of kidney
CPT/HCPCS: 36415; 80051; 82565; 84520; 85025

== ENCOUNTER 2020-11-22 06:18 | Day surgery (SDC) | payer BC ==
[2020-11-17 13:29] VITALS: BMI 26.5
--- NOTE | 2020-11-21 18:58 | P.GSHP ---
History of Present Illness H&P Date: 11/21/20 60 yo male with a history of stones has an 8 mm left renal pelvic stone causing pain. He comes for eswl left. the risks and alternatives have been discussed - Constitutional Constitutional: Denies chills, Denies fever - EENT Eyes: denies blurred vision, denies pain Ears, nose, mouth and throat: Denies headache, Denies sore throat - Cardiovascular Cardiovascular: Denies chest pain, Denies shortness of breath - Respiratory Respiratory: Denies cough, Denies 7 - Gastrointestinal Gastrointestinal: Denies abdominal pain, Denies diarrhea, Denies nausea, Denies vomiting - Genitourinary (Female) Genitourinary: Denies dysuria, Denies hematuria - Genitourinary (Male) Genitourinary: Denies dysuria, Denies hematuria - Musculoskeletal Musculoskeletal: Denies myalgias - Integumentary Integumentary: Denies pruritus, Denies rash - Neurological Neurological: Denies numbness, Denies weakness - Psychiatric Psychiatric: Denies anxiety, Denies depression - Endocrine Endocrine: Denies fatigue, Denies weight change 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, umbilical hernia, kidney stones, diverticulitis History of Any Multi-Drug Resistant Organisms: None Reported Past Surgical History: Orthopedic Surgery Additional Past Surgical History / Comment(s): cervical fusion, left knee, lithotripsy 08/07/2016 Had a port-a-cath and feeding tube for chemo Past Anesthesia/Blood Transfusion Reactions: No Reported Reaction Smoking Status: Never smoker - Past Family History Father Family Medical History: Cancer Additional Family Medical History / Comment(s): prostate Medications and Allergies Home Medications Medication Instructions Recorded Confirmed Type Multivitamins, Thera [Multivitamin 1 tab PO DAILY 08/08/16 11/17/20 History (formulary)] Aspirin EC [Ecotrin Low Dose] 81 mg PO DAILY 10/14/20 11/17/20 History Brimonidine Tartrate [Alphagan P 1 drop LEFT EYE BID 10/14/20 11/17/20 History 0.2% Ophth Soln] Allergies Allergy/AdvReac Type Severity Reaction Status Date / Time No Known Allergies Allergy Verified 11/17/20 13:16 Surgical - Exam - General well developed, no distress - Eyes PERRL - ENT no hearing loss - Neck no masses - Respiratory normal expansion, normal respiratory effort - Cardiovascular Rhythm: regular - Abdomen Abdomen: soft, non tender Hernia: umbilical - Genitourinary normal penis with no external lesions, testicles present - Integumentary no rash, no growths - Neurologic normal coordination, normal sensation - Musculoskeletal normal gait, normal posture - Psychiatric oriented to time, oriented to person, oriented to place, speech is normal, memory intact Results - Imaging CT scan - abdomen: report reviewed, image reviewed CT scan - pelvis: report reviewed, image reviewed Assessment and Plan Assessment: Impression: left renal stone, painful. Plan: eswl left
[2020-11-22] MEDS ORDERED: LACTATED RINGERS 1,000 ML IV SCH (06:39)
[2020-11-22] MEDS ORDERED: MIDAZOLAM 2 MG/2 ML VIAL IV PRN (06:39)
--- NOTE | 2020-11-22 06:41 | XR ---
EXAMINATION TYPE: XR KUB DATE OF EXAM: 11/22/2020 COMPARISON: 08/14/2016 HISTORY: Renal stones TECHNIQUE: 2 views FINDINGS: There is 10 mm calculus over the interpolar left kidney. The bowel gas pattern is normal. T here is no sign of intestinal obstruction or pneumoperitoneum. Fecal pattern is normal. IMPRESSION: Large left side renal calculus appears new compared to old exam.
[2020-11-22] MEDS ORDERED: ONDANSETRON 4 MG/2 ML VIAL ONE (06:54)
[2020-11-22 06:55] VITALS: RESP 16; TEMP 97.6
[2020-11-22] MEDS ORDERED: HYDROmorphone 0.5 MG/0.5 ML SYRINGE IVP PRN (07:00)
[2020-11-22] MEDS ORDERED: ONDANSETRON 4 MG/2 ML VIAL IVP ONE (07:02)
[2020-11-22] MEDS ORDERED: DEXAMETHASONE SOD PHOSPHATE 4 MG/ML 1 ML VIAL IV ONE (07:03)
[2020-11-22] MEDS ORDERED: fentaNYL (PF) 50 MCG/ML 2 ML AMP ONE (08:07)
[2020-11-22] MEDS ORDERED: PROPOFOL 10 MG/ML 20 ML VIAL IV ONE (08:07)
[2020-11-22] MEDS ORDERED: MIDAZOLAM 2 MG/2 ML VIAL ONE (08:07)
--- NOTE | 2020-11-22 08:36 | P.OP ---
Date of Procedure: 11/22/20 Preoperative Diagnosis: Left renal calculus Postoperative Diagnosis: Same Procedure(s) Performed: ESWL left, 2000 shocks, energy level IV Anesthesia: MAC Surgeon: Danis Burger Estimated Blood Loss (ml): 0 Pathology: none sent Condition: stable Disposition: PACU Indications for Procedure: Patient is 60. He has kidney stones. He has a 1 cm left renal pelvic stone. He comes for shockwave lithotripsy Description of Procedure: The patient is brought to the operating suite. He is given IV sedation. The stone was seen in 2 views of fluoroscopy. 2000 shocks at energy level IV administered to the stone and its fragments. The stone fractures nicely. At the procedure the patient awake and returned recovery room good condition. He'll be discharged home upon recovery and found the office in one week.
[2020-11-22] MEDS ORDERED: LACTATED RINGERS 1,000 ML IV ONE (09:41)
[2020-11-22 09:51] VITALS: BP 136/83; PULSE 62
== END 2020-11-22 10:25 | disposition home or self-care (01) ==
LOC: ORWHC2ENDO 06:18
PROVIDERS: ATTEND Urology
DX: N20.0 Calculus of kidney (principal); Z79.82 Long term (current) use of aspirin; Z85.828 Personal history of other malignant neoplasm of skin; Z80.9 Family history of malignant neoplasm, unspecified
CPT/HCPCS: 50590; 74018; J2250; J1100; J2405; J3010; J2704

== ENCOUNTER → 2020-11-29 | Outpatient (CLI) | payer BC ==
--- NOTE | 2020-11-29 09:19 | XR ---
KUB HISTORY: Post lithotripsy, and 20.0 Frontal KUB and 2 images correlated prior exam dated 11/22/2020 Bones are stable. There are calcifications within the pelvis similar to prior exam. The calcification s seen overlying the left renal pelvis is no longer evident. No evident bowel obstruction or pneumope ritoneum. IMPRESSION: Left renal calcification no longer seen.
== END | disposition home or self-care (01) ==
LOC: RADXRMAIN 08:16
PROVIDERS: ATTEND Urology
DX: N20.0 Calculus of kidney (principal)
CPT/HCPCS: 74018

== ENCOUNTER 2020-12-14 08:58 | Day surgery (SDC) | payer BC ==
[2020-12-10 11:41] VITALS: BMI 26.5
[~2020-12-14 08:58] MED LIST: LACTATED RINGERS 1,000 ML IV SCH; LIDOCAINE 1% (10MG/ML) FOR IV START INTRADERMA PRN
[2020-12-14 09:37] VITALS: RESP 16; TEMP 97.9
[2020-12-14] MEDS ORDERED: PROPOFOL 10 MG/ML 20 ML VIAL IV ONE (10:03)
--- NOTE | 2020-12-14 10:06 | P.GSHP ---
History of Present Illness H&P Date: 12/14/20 Chief Complaint: Colon cancer screening 60-year-old male here today for colonoscopy. Last colonoscopy 10 years ago. No bowel complaints. No family history of colon cancer other than an uncle. Last colonoscopy normal. 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, umbilical hernia, kidney stones, diverticulitis, SKIN CANCER ON BACK, History of Any Multi-Drug Resistant Organisms: None Reported Past Surgical History: Orthopedic Surgery Additional Past Surgical History / Comment(s): cervical fusion,ARTHROSCOPIC left knee , lithotripsy X2 Had a port-a-cath and feeding tube for chemo, LEFT KNEE SURGERY, Past Anesthesia/Blood Transfusion Reactions: Previous Problems w/ Anesthesia, Motion Sickness Additional Past Anesthesia/Blood Transfusion Reaction / Comment(s): PATIENT STATES HAD DOUBLE VISION AFTER LITHITRIPSY FOR A SHORT TIME" Smoking Status: Never smoker - Past Family History Father Family Medical History: Cancer Additional Family Medical History / Comment(s): PROSTATE CANCER Medications and Allergies Home Medications Medication Instructions Recorded Confirmed Type Multivitamins, Thera [Multivitamin 1 tab PO DAILY 08/08/16 12/14/20 History (formulary)] Aspirin EC [Ecotrin Low Dose] 81 mg PO DAILY 10/14/20 12/14/20 History Brimonidine Tartrate [Alphagan P 1 drop LEFT EYE BID 10/14/20 12/14/20 History 0.2% Ophth Soln] Allergies Allergy/AdvReac Type Severity Reaction Status Date / Time No Known Allergies Allergy Verified 12/14/20 09:21 Surgical - Exam Vital Signs Temp Pulse Resp BP Pulse Ox 97.9 F 77 16 140/93 98 12/14/20 09:35 12/14/20 09:35 12/14/20 09:35 12/14/20 09:35 12/14/20 09:35 Physical exam: General: Well-developed, well-nourished HEENT: Normocephalic, sclerae nonicteric Abdomen: Nontender, nondistended Extremities: No edema Neuro: Alert and oriented Assessment and Plan (1) Colon cancer screening Narrative/Plan: Will proceed with colonoscopy Current Visit: Yes Status: Acute Code(s): Z12.11 - ENCOUNTER FOR SCREENING FOR MALIGNANT NEOPLASM OF COLON SNOMED Code(s): 062838494
--- NOTE | 2020-12-14 10:15 | P.PCN ---
Date of Procedure: 12/14/20 Procedure(s) Performed: PREOPERATIVE DIAGNOSIS: Colon cancer screening POSTOPERATIVE DIAGNOSIS: Normal exam PROCEDURE: Colonoscopy ANESTHESIA: MAC SURGEON: Otis Chisholm M.D. SPECIMENS: None ENDOSCOPIC PROCEDURE: The patient was placed on the endoscopy table in the left decubitus position. The Olympus colonoscope was inserted into the anus and passed under direct visualization to the base of the cecum. The appendiceal orifice was visualized. From that point the scope was slowly withdrawn inspecti ng all surfaces carefully. There were no neoplastic inflammatory or polypoid lesions throughout the cecum, ascending, transverse, descending, sigmoid and rectum. There was no visible diverticulosis noted. Digital rectal examination was normal. The patient was taken to the recovery room in stable condition per anesthesia guidelines. RECOMMENDATIONS: Resume diet. Follow-up colonoscopy 10 years.
[2020-12-14 10:26] VITALS: BP 119/64; PULSE 85
== END 2020-12-14 10:48 | disposition home or self-care (01) ==
LOC: ORWHC2ENDO 08:58
PROVIDERS: ATTEND Surgery
DX: Z12.11 Encounter for screening for malignant neoplasm of colon (principal); Z85.810 Personal history of malignant neoplasm of tongue; Z87.442 Personal history of urinary calculi; Z87.19 Personal history of other diseases of the digestive system; Z85.828 Personal history of other malignant neoplasm of skin; Z92.21 Personal history of antineoplastic chemotherapy; Z98.890 Other specified postprocedural states; Z80.42 Family history of malignant neoplasm of prostate; Z79.82 Long term (current) use of aspirin; Z79.899 Other long term (current) drug therapy
CPT/HCPCS: J2704; G0121